=== PATIENT | female | born 1960 | race Caucasian/White ===

== ENCOUNTER 2018-10-17 19:52 | Observation (INO) ==
[2018-10-17] MEDS ORDERED: Naloxone 0.4 MG/ML INJ IVP PRN (23:54)
[2018-10-17] MEDS ORDERED: Ondansetron 4 MG/2 ML VIAL IVP PRN (23:54)
--- NOTE | 2018-10-18 00:10 | Internal Med History&Physical ---
Date of Encounter: 10/18/18 Time of Encounter: 00:04 Internal Medicine - H&P: HPI Chief complaint: Dizziness/lightheadedness/palpitations History of present illness: Ms. Hernandes is a 58 year old female with a past medical history of COPD who initially presented to [facility] due to an episode of dizziness, lightheadedness and palpitations. Symptoms occurred this morning while at work after taking her new medication of lisinopril and Imdur. She was seen by her vaccine manager yesterday and started and prescribed these 2 medications in addition to her beta magy. Shortly thereafter patient states she developed a headache and felt dizzy and lightheaded. She decided to leave work and on her way home stopped by a pharmacy where she had her blood pressure checked. She states it was in the low 100s systolic. She subsequently went home where she repeatedly checked her blood pressure again stating that it was in the 90s. Patient did feel nauseous. No reports of chest pain or shortness of breath. Patient recently underwent left heart catheterization on October 09 with findings of nonobstructive coronary artery disease. While at [facility] patient became transiently hypotensive with a systolic blood pressure is low and has 82. Case was discussed with cardiology at [facility] and a noncontrast pelvic CT scan dissection study due to concern for hematoma was performed and negative. Initial troponin was negative. Hemoglobin was stable. No evidence of acute kidney injury. EKG was obtained which showed diffuse T-wave inversions. Patient was given a total of 2 L of fluid boluses with improvement in blood pressure. On arrival here pressure was 95/60 with a heart rate is 64. Saturating 98% on room air. On my assessment patient denies any chest pain or shortness of breath and appears to be feeling better. Past Med Surg Social Fam HX - Past Medical History Medical history: COPD, hyperlipidemia Additional medical history: BRONCHITIS, Psychiatric history: anxiety - Past Surgical History Surgical History: appendectomy Additional surgical history: CSECTION, TONSILLECTOMY, heart cath no interventions - Social History Smoking Status: Former smoker Smokeless Tobacco Status: No Alcohol use: none Drug use: none - Family History Father Cause of : lung cancer Internal Medicine - H&P: Meds Aspirin [Adult Aspirin] 81 mg PO DAILY 09/16/18 [History] Cholecalciferol (Vitamin D3) [Vitamin D3] 1,000 unit PO DAILY 09/16/18 [History] Metoprolol [Lopressor] 25 mg PO HS 09/16/18 [History] Nitroglycerin [Nitrostat] 0.4 mg SL TID PRN 09/16/18 [History] Simvastatin [Zocor] 20 mg PO HS 09/16/18 [History] Isosorbide MONOnitrate (24 HR) [Imdur] 60 mg PO DAILY 10/17/18 [History] Lisinopril [Zestril] 2.5 mg PO DAILY 10/17/18 [History] Allergy/AdvReac Type Severity Reaction Status Date / Time oxycodone [From Percocet] AdvReac Vomiting Verified 09/16/18 20:28 propoxyphene AdvReac Vomiting Verified 10/09/18 09:37 [From Darvocet-N] Sulfa (Sulfonamide AdvReac Vomiting Verified 09/16/18 20:28 Antibiotics) All Systems PM: A 10-system review of systems was performed and is negative for pertinent findings except as documented above in the HPI. - Constitutional Constitutional: no chills, no fever(s), no night sweats - EENT Eyes: no change in vision, no discharge, no pain, no photophobia Ears: no ear discharge, no ear pain, no tinnitus Nose, mouth and throat: no dysphagia, no nasal discharge, no neck pain, no sore throat - Cardiovascular Cardiovascular ROS IM: no chest pain, no diaphoresis, no dyspnea, no lightheadedness, no palpitations, no syncope - Respiratory Respiratory: no cough, no dyspnea, no wheezing, no excessive phlegm production - Gastrointestinal Gastrointestinal: no abdominal pain, no diarrhea, no hematemesis, no hematochezia, no melena, no nausea, no vomiting - Genitourinary Genitourinary: no change in urinary stream, no dysuria, no flank pain, no hematuria - Musculoskeletal Musculoskeletal ROS IM: no numbness, no tingling - Integumentary Integumentary IM: no rash, no unusual bruising - Neurological Neurological ROS: no confusion, no convulsions, no focal weakness, no numbness, no tingling, no tremor(s) - Hematologic/Lymphatic Hematologic/Lymphatic: no easy bruising - Constitutional Vitals: Temp Pulse Resp BP Pulse Ox 97.9 F 64 15 95/60 98 08/03/19 23:14 10/17/18 23:14 10/17/18 23:14 10/17/18 23:30 10/17/18 23:14 Exam: General: Alert and oriented 3 lying in bed in no acute distress Skin:Normal color, no rash, no lesions. HEENT:EOM, pupils equal, round and reactive. Cardiovascular:Normal S1 & S2, no rubs, murmurs or gallops. No JVD. Pulse regular. Lungs:Normal breath sounds, no wheezes or crackles. Abdomen:Soft, non-tender, no rigidity. Extremities:No deformity, no edema or tenderness, no joint swelling or clubbing. Neurological:Normal cognition and motor skills. Pulses:Carotid and radial pulses normal +2. Rest of the physical exam is non contributory Internal Med - H&P Results - Labs CBC & Chem 7: 10/18/18 00:33 10/18/18 00:33 - Assessment and Plan (1) Hypotension Current Visit: No Status: Acute Assessment and plan: Hypotension likely secondary to initiation of Imdur and lisinopril in the sett ing of recent left heart catheter. No evidence of hematoma or bleed on CT dissection study Initial troponin was negative. Hemoglobin remained stable. EKG did show T-wave inversions in multiple leads which appears to be new however, patient denies any chest pain and initial troponin was negative. Etiology of these changes may be due to ischemia in the setting of her hypotension. Most recent echo in September shows an EF of 30-35%. Blood pressure continues to remain in the high 90s systolic. -We will continue to monitor blood pressure closely -We will continue maintenance fluids for now and monitor closely for signs of fluid overload -Hold lisinopril and Imdur for now -Follow cardiology recommendations Qualifiers: Hypotension type: hypotension due to drug Qualified Code(s): I95.2 - Hypotension due to drugs (2) Lightheadedness Current Visit: Yes Status: Acute Assessment and plan: Symptoms likely secondary to hypotension likely a side effect of into her lisinopril and Imdur. Blood pressure remains soft. Patient has received a tot al of 2 L fluid bolus and is currently on maintenance fluids -We will check orthostatics -Continue gentle hydration for now given patient's most recent echo showing an EF of 35%. (3) Heart failure with reduced ejection fraction Current Visit: Yes Status: Acute Assessment and plan: Most recent echo showing an EF of 30-35% with segmental left ventricular systolic dysfunction and moderate left ventricular diastolic dysfunction. At this time no evidence of CHF exacerbation. -We will continue to monitor I's and O's; daily weight -Continue medical management for now. -Follow cardiology recommendations. Qualifiers: Heart failure chronicity: unspecified Qualified Code(s): I50.20 - Unspecified systolic (congestive) heart failure (4) COPD (chronic obstructive pulmonary disease) Current Visit: Yes Status: Acute Assessment and plan: No evidence of an acute exacerbation. Resume any home inhalers. Qualifiers: COPD type: unspecified COPD Qualified Code(s): J44.9 - Chronic obstructive pulmonary disease, unspecified (5) DVT prophylaxis Current Visit: Yes Status: Acute Assessment and plan: Subcutaneous heparin - Time Spent With Patient Total time spent is greater than 50% in coordination of care (as documented) at patient's floor/unit and/or counseling patient:
[2018-10-18 00:54] LABS: Basophils % 0.5 %; Eosinophils # 0.1 K/mcL (0.0-0.6); Eosinophils % 1.8 %; Hemoglobin 12.6 g/dL (11.5-15.4); Immature Granulocytes % 0.3 % (0-4); Lymphocytes # 2.1 K/mcL (0.6-4.6); Lymphocytes % 26.7 %; Mean Corpuscular HGB Conc 32.3 g/dL (31.6-35.5); Mean Corpuscular Hemoglobin 29.1 pg (28.0-33.3); Mean Corpuscular Volume 90.1 fL (83.0-100.0); Mean Platelet Volume 11.2 fL (9.4-12.4); Monocytes # 0.7 K/mcL (0.0-1.3); Monocytes % 8.5 %; Neutrophils # 4.9 K/mcL (1.6-8.9); Platelet Count 144 K/mcL (140-400); Red Blood Count 4.33 M/mcL (3.82-4.97); Red Cell Distribution Width 12.8 % (11.5-14.5); Segmented Neutrophils % 62.2 %; White Blood Count 7.9 K/mcL (4.3-11.1)
[2018-10-18 01:08] LABS: Prothrombin Time 11.6 Seconds (9.4-12.1)
[2018-10-18 01:10] LABS: Activated Partial Thrombo Time 31.6 Seconds (26.0-36.0)
[2018-10-18 01:13] LABS: Alanine Aminotransferase 7 Units/L (7-52); Albumin 3.6 g/dL (3.5-5.7); Albumin/Globulin Ratio 1.6 (1.1-2.2); Alkaline Phosphatase 60 Units/L (34-104); Aspartate Amino Transferase 15 Units/L (13-39); BUN/Creatinine Ratio 13 (6-26); Bilirubin,Total 0.3 mg/dL (0.3-1.0); Blood Urea Nitrogen 7 mg/dL (6-20); Calcium 8.1 mg/dL (8.6-10.3); Carbon Dioxide 23 mEq/L (23-29); Chloride 109 mEq/L (98-107); Globulin 2.2 g/dL (2.4-3.5); Glucose 98 mg/dL (70-105); Magnesium 1.7 mg/dL (1.6-2.6); Osmolality,Calculated 284 (280-300); Potassium 3.7 mEq/L (3.5-5.1); Sodium 138 mEq/L (136-145); Total Protein 5.8 g/dL (6.4-8.9); eGFR For African Americans > 60 (> 60); eGFR For Non-African Americans > 60 (> 60)
[2018-10-18 01:27] LABS: Platelet Estimate Normal (Normal)
[2018-10-18 01:58] LABS: Thyroid Stimulating Hormone 3.737 mcIU/mL (0.340-5.600)
[2018-10-18] MEDS: Acetaminophen 325 MG TABLET PO PRN ×2 (08:52→15:57)
[2018-10-18] MEDS: 0.9 % Sodium Chloride 1,000 ML IVC SCH ×2 (08:53→20:14)
--- NOTE | 2018-10-18 09:43 | Cardiology Consult Note ---
Date of Encounter: 10/18/18 Time of Encounter: 09:35 Assessment and Plan (1) Abnormal ECG Current Visit: Yes Status: Acute 58-year-old female with recent evaluation for chest discomfort. Echocardiogram demonstrated segmental wall motion abnormalities and possible cardiomyopathy, stress test suggested LAD ischemia. Subsequent LHC demonstrated nonobstructive CAD. Previous ECGs demonstrated sinus rhythm. After first dose of isosorbide yesterday, reports she developed headache, lightheadedness. Outside ER demonstrates sinus rhythm with diffuse T-wave inversions. Troponins have been negative. CTA aorta negative for dissection or acute pathology. Electrolytes are normal. Etiology of ECG changes remains unclear. Upon reviewing her records and discussing her symptoms, possible vasospasm should be considered. Fortunately, she states she quit smoking approximately 40 days ago. Agree with holding Imdur for now. Given concern for possible vasospasm, consider calcium channel magy once BP can tolerate. Ongoing tobacco cessation emphasized. Continue telemetry. Repeat TTE. Further recommendations to follow. (2) CAD in [place] artery Current Visit: Yes Status: Acute [place] CAD, nonobstructive. Recommend aspirin, statin therapy. Blood pressure is marginal, unable to currently tolerate BB. Risk factor modification emphasized. Discussion w patient/family: The assessment and plan as outlined above was discussed with the patient and/or family members who expressed understanding and agreement. All questions were answered. Thank you for involving us in the care of your patient. Please call with any questions. History of Present Illness Consult date: 10/18/18 Requesting physician: Juma Do Consult reason: Abnormal ECG Chief complaint: Lightheadedness History of present illness: Ms. Hernandes is a 58 year old female with a history of COPD and nonobstructive CAD. Recent TTE suggested reduced LV function and stress test suggested LAD ischemia, TID. Patient recently underwent LHC on 10/09/[address] Ibanez, medical therapy recommended. She presented to an outside ER yesterday with complaints of dizziness and lightheadedness. She reported that her blood pressure was lower than usual. She thought that may be recent changes in her medications were causing these issues. While in the ER, an ECG was obtained, which demonstrated diffuse precordial T- wave inversions. Cardiology was contacted. Serial troponins were negative. CT performed, which was negative for dissection. She was transferred for ongoing observation and care. Today, patient reports several weeks of intermittent chest discomfort. Symptoms occur at rest or with activity. Describes as a substernal pressure sensation occasionally with radiation to right shoulder and back. She was seen in the office Friday, reports isosorbide added to her medications for ongoing intermittent chest discomfort. She took her first dose yesterday and states she developed a severe headache, lightheadedness, and nausea. Home CV medications have been held since admission. Today, reports she is feeling better. No current chest pain or discomfort. No lightheadedness. Previous cardiovascular testing: ECG 10/12/2018: Sinus rhythm. Normal ST and T waves. LHC 10/09/2018: Left main normal. LAD mid 20-40% stenosis. Circumflex normal. OM1 normal. LPDA normal. RCA, RPDA normal. Codominant system. EF 60%. TTE 09/30/2018: LVEF 30-35%. Normal LV size, wall thickness. Anterior, anteroseptal, inferoseptal segments. Hypokinesis of the apical segments and apex. Normal RV size and function. Mild MR. No evidence of pulmonary hypert ension. Past Med Surg Social Fam HX - Past Medical History Medical history: COPD, hyperlipidemia Additional medical history: BRONCHITIS, Psychiatric history: anxiety - Past Surgical History Surgical History: appendectomy Additional surgical history: CSECTION, TONSILLECTOMY, heart cath no interventions - Social History Smoking Status: Former smoker Smokeless Tobacco Status: No Alcohol use: none Drug use: none - Family History Father Cause of : lung cancer Medications and Allergies Aspirin [Adult Aspirin] 81 mg PO DAILY 09/16/18 [History] Cholecalciferol (Vitamin D3) [Vitamin D3] 1,000 unit PO DAILY 09/16/18 [History] Metoprolol [Lopressor] 25 mg PO HS 09/16/18 [History] Nitroglycerin [Nitrostat] 0.4 mg SL TID PRN 09/16/18 [History] Simvastatin [Zocor] 20 mg PO HS 09/16/18 [History] Isosorbide MONOnitrate (24 HR) [Imdur] 60 mg PO DAILY 10/17/18 [History] Lisinopril [Zestril] 2.5 mg PO DAILY 10/17/18 [History] Allergy/AdvReac Type Severity Reaction Status Date / Time oxycodone [From Percocet] AdvReac Vomiting Verified 09/16/18 20:28 propoxyphene AdvReac Vomiting Verified 10/09/18 09:37 [From Darvocet-N] Sulfa (Sulfonamide AdvReac Vomiting Verified 09/16/18 20:28 Antibiotics) All Systems Review: The remainder of the systems were reviewed and are negative - Cardiovascular Cardiovascular: as per HPI Physical Examination Vital Signs, Last 4 Hours Temp Pulse Resp BP Pulse Ox 10/18/18 07:28 97.5 F L 76 18 98/64 93 General: Conversant, No Apparent Distress HEENT: Atraumatic, Normocephaly, Mucus Membranes Moist Neck: No JVD, Normal carotid pulses Cardiac: Reg Rate and Rhythm, Normal S1 and S2, No Murmur Lungs: Normal Breath Sounds, No Wheeze, Rales, Rhonchi Neuro: Alert and responsive, No focal deficits noted Abdomen: Soft, Non-Tender Skin: No rashes noted on visualized skin Musculoskeletal: No Chest Wall Tenderness Extremities: No Clubbing Results 10/18/18 00:33 10/18/18 00:33 Lab Results 10/18/18 10/18/18 10/18/18 00:33 00:33 00:33 WBC 7.9 Hgb 12.6 Hct 39.0 Plt Count 144 INR 1.0 APTT 31.6 Sodium Potassium Chloride Carbon Dioxide BUN Creatinine Glucose Calcium Magnesium Total Bilirubin AST ALT Alkaline Phosphatase Troponin I < 0.03 B-Natriuretic Peptide TSH 10/18/18 10/18/18 00:33 00:33 WBC Hgb Hct Plt Count INR APTT Sodium 138 Potassium 3.7 Chloride 109 H Carbon Dioxide 23 BUN 7 Creatinine 0.55 L Glucose 98 Calcium 8.1 L Magnesium 1.7 Total Bilirubin 0.3 AST 15 ALT 7 Alkaline Phosphatase 60 Troponin I B-Natriuretic Peptide 161 H TSH 3.737 - Imaging and Cardiology Echo: report reviewed Cardiac cath: report reviewed - EKG Interpretation EKG results cardiology: personally reviewed Consult Discharge Plan - Plan Referrals: Kat La APN [Primary Care Provider] -
[2018-10-18] MEDS: Aspirin Enteric Coated 81 MG Tablet PO SCH (11:36)
--- NOTE | 2018-10-18 14:37 | Event Note ---
Date of Encounter: 10/18/18 Time of Encounter: 12:00 H&P reviewed. 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 She was hypotensive on presentation and EKG showed diffuse T-wave inversions in lead 2, 3, aVF, and V2-V6. Serial troponins negative however EKG changes persisted. Appreciate cardiology input, will hold off on BRAYAN inhibitor, Imdur, repeat limited echocardiogram, and monitor overnight with EKG in the morning.
[2018-10-18] MEDS: Nicotine 21 MG PATCH.TD24 TD SCH (21:03)
[2018-10-19 05:29] LABS: Hematocrit 39.5 % (35.3-44.9); Hemoglobin 12.4 g/dL (11.5-15.4); Mean Corpuscular HGB Conc 31.4 g/dL (31.6-35.5); Mean Corpuscular Hemoglobin 28.1 pg (28.0-33.3); Mean Corpuscular Volume 89.6 fL (83.0-100.0); Mean Platelet Volume 11.1 fL (9.4-12.4); Platelet Count 188 K/mcL (140-400); Red Blood Count 4.41 M/mcL (3.82-4.97); Red Cell Distribution Width 12.6 % (11.5-14.5); White Blood Count 9.1 K/mcL (4.3-11.1)
[2018-10-19 05:49] LABS: BUN/Creatinine Ratio 15 (6-26); Blood Urea Nitrogen 9 mg/dL (6-20); Calcium 8.5 mg/dL (8.6-10.3); Carbon Dioxide 25 mEq/L (23-29); Chloride 108 mEq/L (98-107); Glucose 95 mg/dL (70-105); Magnesium 1.6 mg/dL (1.6-2.6); Osmolality,Calculated 288 (280-300); Potassium 3.2 mEq/L (3.5-5.1); Sodium 140 mEq/L (136-145); eGFR For African Americans > 60 (> 60); eGFR For Non-African Americans > 60 (> 60)
[2018-10-19] MEDS ORDERED: Cholecalciferol (D-3) 1,000 UNIT (25MCG) TABLET PO SCH (09:00)
[2018-10-19] MEDS: Nicotine 21 MG PATCH.TD24 TD SCH (09:29)
[2018-10-19] MEDS: Aspirin Enteric Coated 81 MG Tablet PO SCH (09:29)
[2018-10-19] MEDS: Potassium Chloride Elixir 20 MEQ/15 ML UDC PO SCH ×2 (09:29→10:25)
[2018-10-19] MEDS: Acetaminophen 325 MG TABLET PO PRN (09:39)
[2018-10-19 11:29] VITALS: BP 100/68
--- NOTE | 2018-10-19 14:13 | Cardiology Progress Note ---
Date of Encounter: 10/19/18 Time of Encounter: 14:20 Assessment and Plan (1) Abnormal ECG Current Visit: Yes Status: Acute 58-year-old female with recent evaluation for chest discomfort. Echocardiogram demonstrated segmental wall motion abnormalities and possible cardiomyopathy, stress test suggested LAD ischemia. Subsequent LHC demonstrated nonobstructive CAD. Previous ECGs demonstrated sinus rhythm. After first dose of isosorbide yesterday, reports she developed headache, lightheadedness.Outside ER demonstrates sinus rhythm with diffuse T-wave inversions. Troponins have been negative. CTA aorta negative for dissection or acute pathology.Electrolytes are normal. Etiology of ECG changes remains unclear.Upon reviewing her records and discuss ing her symptoms, possible vasospasm should be considered. Fortunately, she states she quit smoking approximately 40 days ago. Agree with holding Imdur for now. Given concern for possible vasospasm, consider calcium channel magy once BP can tolerate. 10/19/18: Will d/c Toprol XL, start CCB now for suspected vasospasm. Home medications also including ACEi (HFrEF), recommend stopping as well. Stop imdur. Prelim TTE findings reviewed with Dr. Rivas: LVEF preserved, ~65%. Prior CMP ? stress induced. Repeat ECG now. QTc prolonged on ECG dated 10/17. If no significant changes, anticipate sign-off. (2) CAD in [place] artery Current Visit: Yes Status: Acute [place] CAD, nonobstructive. Recommend aspirin, statin therapy. Stop BB and change to CCB d/t suspected vasospasm. Risk factor modification emphasized. Discussion w patient/family: The assessment and plan as outlined above was discussed with the patient and/or family members who expressed understanding and agreement. All questions were answered. Thank you for involving us in the care of your patient. Please call with any questions. The patient will be discussed and reviewed with Dr. Rivas; changes to be made accordingly. Subjective Principal diagnosis: Headache Interval history: Seen and examined. No new CV complaints overnight. Objective Vital Signs, Last 4 Hours Temp Pulse Resp BP Pulse Ox 10/19/18 11:28 97.9 F 73 19 100/68 96 General: Conversant, No Apparent Distress HEENT: Atraumatic, Normocephaly, Mucus Membranes Moist Cardiac: Reg Rate and Rhythm, Normal S1 and S2 Lungs: Normal Breath Sounds Neuro: Alert and responsive Abdomen: Soft Skin: No rashes noted on visualized skin Musculoskeletal: No Chest Wall Tenderness Extremities: No Edema, Normal Pulses Results 10/19/18 04:26 10/19/18 04:26 Lab Results 10/19/18 10/19/18 04:26 04:26 WBC 9.1 Hgb 12.4 Hct 39.5 Plt Count 188 Sodium 140 Potassium 3.2 L Chloride 108 H Carbon Dioxide 25 BUN 9 Creatinine 0.59 L Glucose 95 Calcium 8.5 L Magnesium 1.6 Active Medications Acetaminophen (Tylenol) 650 mg PO Q6HR PRN PRN Reason: Pain/fever Stop: 04/19/19 08:09 Last Admin: 10/19/18 09:39 Dose: 650 mg Documented by: Aspirin (Aspirin Ec) 81 mg PO DAILY [facility] Stop: 04/19/19 10:16 Last Admin: 10/19/18 09:29 Dose: 81 mg Documented by: Diltiazem HCl (Cardizem Cd) 120 mg PO DAILY [facility] Stop: 04/20/19 15:01 Naloxone HCl (Narcan) 0.4 mg IVP Q2MPRN PRN PRN Reason: SEE COMMENTS Stop: 04/18/19 23:55 Nicotine (Nicoderm) 21 mg TD DAILY [facility]; Protocol Stop: 04/19/19 20:45 Last Admin: 10/19/18 09:29 Dose: 21 mg Documented by: Ondansetron HCl (Zofran) 4 mg IVP Q8HR PRN PRN Reason: Nausea And Vomiting Stop: 04/18/19 23:55 Last Admin: 10/19/18 04:18 Dose: 4 mg Documented by: Simvastatin (Zocor) 20 mg PO HS [facility]; Protocol Stop: 04/19/19 21:01 Last Admin: 10/18/18 20:14 Dose: 20 mg Documented by: Vitamin D (Vitamin D) 1,000 unit PO DAILY [facility] Stop: 04/20/19 09:01 Last Admin: 10/19/18 09:29 Dose: 1,000 unit Documented by: - Imaging and Cardiology Stress Test: report reviewed Echo: pending, report reviewed Cardiac cath: report reviewed Other Results: 12 hour tele: avg HR=80 SR. No events noted. - EKG Interpretation EKG results cardiology: personally reviewed Consult Discharge Plan - Plan Referrals: Kat La APN [Primary Care Provider] -
[2018-10-19] MEDS ORDERED: Diltiazem CD (24hr) 120 MG CAPSULE PO SCH (15:00)
--- NOTE | 2018-10-19 15:33 | Discharge Summary ---
- NOTES TO OUTPATIENT PROVIDER Notes to Outpatient Provider: Follow up with cardiology as outpatient Date of Encounter: 10/19/18 Time of Encounter: 12:00 - Discharge Diagnosis (1) Hypotension Priority: Primary Status: Acute Qualifiers: Hypotension type: hypotension due to drug Qualified Code(s): I95.2 - Hypotension due to drugs (2) Lightheadedness Priority: Secondary Status: Acute (3) COPD (chronic obstructive pulmonary disease) Priority: Secondary Status: Acute Qualifiers: COPD type: unspecified COPD Qualified Code(s): J44.9 - Chronic obstructive pulmonary disease, unspecified (4) DVT prophylaxis Priority: Secondary Status: Acute (5) Heart failure with reduced ejection fraction Priority: Secondary Status: Acute Qualifiers: Heart failure chronicity: unspecified Qualified Code(s): I50.20 - Unspecified systolic (congestive) heart failure (6) Abnormal ECG Priority: Secondary Status: Acute Hospital course: Ms. Hernandes is a 58 year old female with history of NICMP with EF 30-35% on 09/2018, COPD, who was admitted due to headache and lightheadedness after taking lisinopril and Imdur for the first time. Was hypotensive on presentation and had abnormal EKG in the form of diffuse T wave inversions in multiple leads. BRAYAN-i and Imdur held, was given IVF, and EKG changes persisted hence echocardiogram was done that did not show any significant changes. Managed in consultation with cardiology ?vasospasm. BRAYAN-i and Imdur were discontinued and bb was substituted with CCB. She will be discharged with cardiology follow up as outpatient. Discharge discussed with: patient, nurse, social work, case management - Time Spent with Patient Total time spent providing and/or coordinating discharge services: 32 mins - Discharge Medications Prescriptions: New Diltiazem CD (24hr) [Cardizem CD] 120 mg PO DAILY #30 cap.er.24h Nicotine Patch [Nicoderm] 21 mg TD DAILY #21 patch.td24 Continued Cholecalciferol (Vitamin D3) [Vitamin D3] 1,000 unit PO DAILY Aspirin [Adult Aspirin] 81 mg PO DAILY Simvastatin [Zocor] 20 mg PO HS Nitroglycerin [Nitrostat] 0.4 mg SL TID PRN PRN Reason: Chest Pain Discontinued Metoprolol Succinate [Toprol Xl] 25 mg PO QPM Isosorbide MONOnitrate (24 HR) [Imdur] 60 mg PO DAILY Lisinopril [Zestril] 2.5 mg PO DAILY Home Medications: Aspirin [Adult Aspirin] 81 mg PO DAILY 09/16/18 [History] Cholecalciferol (Vitamin D3) [Vitamin D3] 1,000 unit PO DAILY 09/16/18 [History] Nitroglycerin [Nitrostat] 0.4 mg SL TID PRN 09/16/18 [History] Simvastatin [Zocor] 20 mg PO HS 09/16/18 [History] Diltiazem CD (24hr) [Cardizem CD] 120 mg PO DAILY #30 cap.er.24h 10/19/18 [Rx] Nicotine Patch [Nicoderm] 21 mg TD DAILY #21 patch.td24 10/19/18 [Rx] Allergies/Adverse Reactions: Allergy/AdvReac Type Severity Reaction Status Date / Time oxycodone [From Percocet] AdvReac Vomiting Verified 09/16/18 20:28 propoxyphene AdvReac Vomiting Verified 10/09/18 09:37 [From Darvocet-N] Sulfa (Sulfonamide AdvReac Vomiting Verified 09/16/18 20:28 Antibiotics) Date of admission: 10/17/18 23:04 Primary care physician: Kat La APN Consults: 10/18/18 00:03 Consult to Cardiology [CONS] Routine Comment: Consulting Provider: Cardiology [place] Reason for Consult: Recent left heart catheter now presenting with hypotension, palpitations and EKG changes. Call Completed: No - Constitutional Vitals: Temp Pulse Resp BP Pulse Ox 97.9 F 73 19 100/68 96 10/19/18 11:28 10/19/18 11:28 10/19/18 11:28 10/19/18 11:28 10/19/18 11:28 Exam: General: Alert and oriented 3 lying in bed in no acute distress Cardiovascular:Normal S1 & S2, no rubs, murmurs or gallops. No JVD. Pulse regular. Lungs:Normal breath sounds, no wheezes or crackles. Abdomen:Soft, non-tender, no rigidity. Extremities:No deformity, no edema or tenderness, no joint swelling or clubbing. Neurological:Normal cognition and motor skills. - Patient Status Disposition: Home, Self-Care Condition: Fair Functional capacity at discharge: independent ambulation Overall status at discharge: patient is progressing back to baseline - Discharge Instructions Instructions: Chronic Obstructive Pulmonary Disease (DC) Follow Up With: Kat La APN [Primary Care Provider] - Jaime Ibanez MD [Partnered Physician] - - Diet and Activity Activity: resume usual activities as tolerated Diet: regular diet
[2018-10-19] MEDS ORDERED: Metoprolol XL (24 HR) Succ 25 MG TAB.ER.24H PO SCH (18:00)
[2018-10-20] MEDS ORDERED: Diltiazem CD (24hr) 120 MG CAPSULE PO SCH (09:00)
--- NOTE | 2018-10-20 13:07 | Electrocardiograph Report ---
[address] [place], [place] [address] Test Date: 2018-10-19 Pat Name: Anna Hernandes Department: 112 Room: 2A37 Gender: F [employer] Driver: [facility] [place] 1960 Requested By: Saud Cox Order Number: [id number] Reading MD: Agustina Layton Measurements Intervals [place] Rate: 75 P: 72 MD: 151 QRS: 52 QRSD: 89 T: 218 QT: 400 QTc: 429 Interpretive Statements SINUS RHYTHM MARKED T-WAVE ABNORMALITY, CONSIDER ANTEROLATERAL ISCHEMIA MODERATE T-WAVE ABNORMALITY, CONSIDER INFERIOR ISCHEMIA Electronically Signed On 10-20-2018 13:05:50 EDT by Agustina Layton
== END 2018-10-19 17:50 | disposition home or self-care (01) ==
LOC: 2ANU → SUATTDRO 23:04
PROVIDERS: ADMIT Internal Medicine; ATTEND Internal Medicine